=== PATIENT | female | born 1960 | race Caucasian/White ===

== ENCOUNTER 2016-11-07 05:47 | Observation (INO) | payer OTHER ==
[~2016-11-07] VITALS: Ht 177.8 cm; Wt 91.1 kg
--- NOTE | ~2016-11-07 | S ---
[facility] [place] [address] SURGICAL PATH RPT PROCEDURE Name: LINDY PEARL Room #: 200-I [facility] Michelle Lua#: [id number] Admission: 11/07/16 Date of : 56 Discharge: Report #: [id number] Path Case #: [id number] PATHOLOGY REPORT COLLECTION DATE: 11/08/2016 RECEIVED DATE: 11/08/2016 SUBMITTING PHYS: Dr. Serafin Hairston OTHER PHYS: Dr. Alia Polanco SPECIMEN(S) RECEIVED: A.Gallbladder * * * * * * * * * * * * FINAL DIAGNOSIS: A. Gallbladder, cholecystectomy: - Mild chronic cholecystitis. - Cholelithiasis. (IUV; 11/09/16) PATHOLOGIST: Char Munoz M.D. REPORT ELECTRONICALLY SIGNED BY: Char Munoz M.D. DATE/TIME: 11/09/2016 13:06 * * * * * * * * * * * * GROSS PATHOLOGY: Received in formalin labeled "Lindy Pearl and gallbladder," is a 9.3 x 3.8 x 1.2 cm, previously opened gallbladder with hemorrhagic and bile-stained serosal surfaces. The gallbladder was previously opened to reveal light green and granular mucosa and an average wall thickness of 0.2 cm. Calculi are present and no masses are noted grossly. Hollock Maker sections from the body and fundus are submitted along with the possible proximal margin in cassette A1. (TTL; 11/08/2016) CLINICAL HISTORY: Cholecystitis INITIAL CPT CODE(S): A; 58436 Professional services performed by [facility] at [facility] [address] , [place] [address] Technical services performed by [facility] at [address] [place] [address] [place] [address] SURGICAL PATH RPT PROCEDURE Name: DAELINDY Marge Room #: 200-I [facility] Michelle Lua#: [id number] Admission: 11/07/16 Date of : 56 Discharge: Report #: [id number] Path Case #: [id number] [place] [address]. BOB SAMSON) [facility] [address] [place] [address] PHONE: [phone] DIRECTOR: Kvng Don M.D. * * * END OF REPORT * * *
--- NOTE | ~2016-11-07 | O ---
[facility] [place] [address] OPERATIVE REPORT Name: ANGLEES PEARL Room #: 200-I [facility] Michelle Lua#: [id number] Admission: 11/07/16 Attend Phys: Alia Ward MD Discharge: 11/09/16 Date of : 56 Report #: [id number] THIS REPORT FOR: //name// CC: Alia Ward [facility] DATE OF SERVICE: 11/08/2016 PREOPERATIVE DIAGNOSES: 1. Symptomatic cholelithiasis, possible acute cholecystitis. 2. New onset atrial fibrillation. POSTOPERATIVE DIAGNOSES: 1. Symptomatic cholelithiasis. 2. New onset atrial fibrillation. PROCEDURE: Laparoscopic cholecystectomy with intraoperative cholangiogram. SURGEON: Serafin Hairston M.D. LICENSED PHYSICAL THERAPIST ASSISTANT: Leigh Flaherty N.P. ANESTHESIA: General endotracheal anesthesia and local anesthetic. ESTIMATED BLOOD LOSS: 5 mL. SPECIMEN: Gallbladder. COMPLICATIONS: None appreciated. INDICATIONS FOR PROCEDURE: This is a 56-year-old female patient who was transferred to [facility] with new onset atrial fibrillation with a rapid ventricular rate. She was initially seen at [facility] for abdominal pain, nausea and vomiting, which had been ongoing for the past couple of weeks. While at [facility], she underwent a CT of abdomen and pelvis, which revealed a distended gallbladder with cholelithiasis. Her transfer was initiated secondary to the atrial fibrillation. The patient has an exam consistent with acute cholecystitis. She presents now for laparoscopic cholecystectomy with cholangiogram. OPERATIVE FINDINGS: Upon entry to the abdominal cavity, the liver, stomach, small bowel and colon and the surrounding area appeared otherwise normal. The gallbladder showed no acute inflammatory changes. A critical view consisting of cystic artery, cystic duct and lower edge of the gallbladder forming a window through which the liver was visible was seen prior to clipping the cystic duct for cholangiogram. The cholangiogram showed free flow of contrast into the [facility] [address] [place] [address] OPERATIVE REPORT Name: ANGELES PEARL Room #: 200-I [facility] Michelle Lua#: [id number] Admission: 11/07/16 Attend Phys: Alia Ward MD Discharge: 11/09/16 Date of : 56 Report #: [id number] duodenal sweep. The biliary tree appeared normal. After removal of the gallbladder from the patient's abdominal cavity, it was opened on the backtable. Four moderate sized, nonpigmented gallstones were found within the gallbladder. The gallbladder did not appear to be acutely inflamed. Three clips remained on the cystic duct stump. No other significant intraabdominal pathology was identified. DESCRIPTION OF PROCEDURE IN DETAIL: After the benefits and risks of the procedure were explained to the patient which include but are not limited to risks of bleeding, infection, injury to the biliary tree, injury to adjacent organs, risk of DVT, pulmonary embolus, postoperative pain and postoperative expectations informed consent was obtained. The patient was identified in the preoperative holding area. The patient was then given IV antibiotics as documented in the chart to comply with the SCIP protocol. The patient was taken to the operating room and was placed in the supine position. The patient was given IV sedation and was intubated without incident. A time-out was performed to correctly identify the patient and procedure. SCDs were placed on the patient's bilateral lower extremities. The patient's abdomen was then prepped and draped in the standard sterile fashion with ChloraPrep. Local anesthetic was infiltrated into the skin and subcutaneous tissue. A periumbilical incision was made with a #15 blade scalpel. The 11-mm Visiport was then placed intraperitoneally with the 10-mm 0-degree angled laparoscope. After confirmation of placement within the peritoneal cavity, the scope was changed to a 10-mm 30 degree angled laparoscope and pneumoperitoneum was achieved with insufflation of carbon dioxide. The patient was placed in the reverse Trendelenburg position, rotated to the patient's left. A subxiphoid 5 mm and right subcostal 5 mm ports times 2 were placed under direct visualization after local anesthetic was infiltrated into the skin and subcutaneous tissue and appropriately sized incisions were made. Operative findings are as noted above. The dome of the gallbladder was retracted in a cephalad direction. The gallbladder peritoneum was scored medially and laterally after takedown of the adhesions to the gallbladder. Dissection was carried out around the cystic artery and cystic duct to identify each structure as entering directly into the gallbladder. The critical view as described above was seen. A Hemoclip was then placed on the cystic duct at its junction with the gallbladder. A ductotomy was made and the cholangiocatheter was passed into the cystic duct. A clip was placed, contrast was then injected and cholangiogram findings are as noted above. The cholangiocatheter was then removed and the cystic duct was triply clipped distal to the ductotomy. The duct was divided at the ductotomy site with the Harmonic scalpel. The cystic artery was then divided with the Harmonic scalpel as well. The gallbladder was then dissected off the liver bed with the Harmonic scalpel and after fully removing the gallbladder, it was placed in an Endopouch and then removed through the periumbilical port site. The abdominal cavity was then reentered. Other operative findings are as noted [address] [address] OPERATIVE REPORT Name: ANGELES PEARL Room #: 200-I [facility]#: [id number] Admission: 11/07/16 Attend Phys: Alia Ward MD Discharge: 11/09/16 Date of : 56 Report #: [id number]. The liver bed was made hemostatic with a combination of electrocautery and a combination of electrocautery and other hemostatic agent as documented in the chart. After ensuring final hemostasis and ensuring that the clips were secure, the periumbilical port site fascial opening was closed with a simple interrupted 0 PDS suture under direct visualization using the Erik Angeles laparoscopic fascial closure device. The ports were removed and the abdominal cavity was desufflated. The fascial suture was tied. Interrupted subcuticular 4-0 Monocryl sutures and Dermabond were used to close the skin. The patient tolerated the procedure well. The patient was awakened, extubated and taken to the recovery room in stable condition with no apparent intraoperative complications. <ELECTRONICALLY SIGNED> By: Serafin Hairston MD, FACS 11/12/16 0712 1201 1259 Serafin Hairston MD, FACS /nt
--- NOTE | ~2016-11-07 | HC ---
[facility] [place] [address] CONSULTATION Name: ANGELES PEARL Room #: 200-I ADM [facility] M.R.#: [id number] Admission: 11/07/16 Attend Phys: Alia Ward MD Discharge: Date of : 56 Report #: [id number] THIS REPORT FOR: //name// CC: Alia Ward [facility] DATE OF SERVICE: 11/07/2016 ATTENDING PHYSICIAN: Alia Wrad MD CONSULTING PHYSICIAN: Serafin Hairston MD REASON FOR CONSULTATION: Right upper quadrant abdominal pain. HISTORY OF PRESENT ILLNESS: This is a 56-year-old female patient who was transferred to [facility] secondary to new onset atrial fibrillation with a rapid ventricular rate. The patient was seen at [facility] for abdominal pain, nausea, and vomiting over the past couple of weeks. She denies fever. CT of the abdomen and pelvis showed a distending gallbladder with cholelithiasis. I have been asked to see the patient for further evaluation and treatment. PAST MEDICAL HISTORY: Significant for 1. Atrial fibrillation with rapid ventricular rate (currently in normal sinus rhythm/cardioverted). 2. Tobacco abuse. 3. Hypertension. 4. Arthritis. PAST SURGICAL HISTORY: Bilateral tubal ligation and HOME MEDICATIONS: Include Neurontin, Mobic, Zestril and Ultram. ALLERGIES: CODEINE. FAMILY HISTORY: Reviewed and noncontributory to this hospitalization. SOCIAL HISTORY: The patient denies any use of illicit drugs or alcohol. She smokes 1 pack of cigarettes daily. She lives at home with her spouse. REVIEW OF SYSTEMS: As per history of present illness. GENERAL: The patient denies unintentional weight loss. Denies fever or chills. HEENT: Denies changes in taste, vision, hearing, or smell. RESPIRATORY: Denies worsening shortness of breath or asthma. CARDIOVASCULAR: Denies chest pain or palpitations. GASTROINTESTINAL: As per history of present illness. Denies bright red blood [facility] [address] [place] [address] CONSULTATION Name: ANGELES PEARL Room #: 200-I [facility].#: [id number] Admission: 11/07/16 Attend Phys: Alia Ward MD Discharge: Date of : 56 Report #: [id number] per rectum. GENITOURINARY: Denies dysuria, urgency, increased urinary frequency or hematuria. MUSCULOSKELETAL: Denies myalgia, arthralgia or arthritis. NEUROLOGIC: Denies headaches, numbness or tingling. PSYCHIATRIC: Denies depression, anxiety or suicidal ideations. SKIN/INTEGUMENTARY: Denies new skin lesions, rashes, or moles. ENDOCRINE: Denies polydipsia, polyuria, heat or cold intolerance. HEMATOLOGIC: Denies easy bleeding, bruising or anemia. All other review of systems is negative. PHYSICAL EXAMINATION: VITAL SIGNS: Temperature 98.8, blood pressure 145/78, pulse 80 and respirations 18. GENERAL: This is a 56-year-old female patient who is accompanied by her . HEENT: Atraumatic, normocephalic with moist mucosal membranes. She smells of smoke. NECK: Supple, no appreciable lymphadenopathy. Trachea is midline. CHEST: Clear bilaterally. No crackles or wheezes. CARDIOVASCULAR: Regular rate and rhythm, S1, S2. ABDOMEN: Soft and tender to palpation, greatest in the right upper quadrant and upper epigastrium. She has a negative Truong's sign, no rebound or guarding. No palpable masses, no appreciable hernias. GENITOURINARY: Normal external female genitalia. EXTREMITIES: No clubbing, cyanosis or edema. NEUROLOGIC: Cranial nerves 2-12 grossly intact. PSYCHIATRIC: Normal mood and affect. SKIN/INTEGUMENTARY: No acute inflammatory changes, rashes or lesions are present. LABORATORY DATA: CBC shows a white blood cell count 4.9, hemoglobin 15.8, hematocrit 46.6 and platelets 148 with 56% segmented neutrophils. She had normal band levels. Comprehensive metabolic profile shows sodium 138, potassium 4.1, chloride 106, CO2 24, BUN 13, creatinine 0.9, glucose 130 with normal liver function tests and a normal lipase. Her D-dimer was elevated at 1.59. RADIOLOGIC STUDIES: CT findings from [facility] are as noted above. I also ordered an abdominal ultrasound which shows large gallstones within the gallbladder with no ultrasound findings for acute cholecystitis. She had a negative sonographic Truong sign. The gallbladder measured 5.2 mm in diameter, and expected size/not enlarged. IMPRESSION AND PLAN: This is a 56-year-old female patient with the above listed comorbidities who appears that symptomatic cholelithiasis and may be progressing towards acute cholecystitis. We discussed the pathophysiology and natural [address] [place] [address] CONSULTATION Name: DAEANGELES Marge Room #: 200-I [facility] Michelle Lua#: [id number] Admission: 11/07/16 Attend Phys: Alia Ward MD Discharge: Date of : 56 Report #: [id number] history of biliary disease as well as the treatment alternatives and surgical options. The patient would benefit from laparoscopic cholecystectomy. We discussed the risks, benefits, and expectations of the operation in detail. The patient expressed understanding and wishes to proceed. She will be taken to the operating room at the next earliest availability. I sincerely appreciate the opportunity to participate in the care of this patient and will leave further recommendations and orders in the electronic medical record as appropriate. Thank you very much. <ELECTRONICALLY SIGNED> By: Serafin Hairston MD, FACS 11/09/16 1146 2059 2218 Serafin Hairston MD, FACS /nt
--- NOTE | ~2016-11-07 | 2DMMODE ---
[facility] [address] [place] [address] 2 D/M-MODE ECHOCARDIOGRAM Name: ANGELES PEARL Room #: 200-I ADM [place] [facility].#: [id number] Admission: 11/07/16 Attend Phys: Alia Ward Discharge: Date of : 56 Date of Service: 11/07/16 1159 Report #: [id number] THIS REPORT FOR: //name// APPROVED REPORT EXAM: Comprehensive 2D, Doppler, and color-flow Echocardiogram Patient Location: Bedside/Room 200 Blood Pressure: 145/78 mmHg HR: 71 bpm Rhythm: NSR Other Information Study Quality: Adequate Indications Afib with RVR. Hx: HTN, Tobacco abuse 2D Dimensions RVDd: 38.22 mm LVEF(%): 67.65 (>50%) IVSd: 10.32 (7-11mm) LVOT Diam: 21.34 (18-24mm) LVDd: 42.02 mm PWd: 9.86 (7-11mm) Ascending Aorta: 32.33 mm LVDs: 26.36 (25-40mm) Aortic Root: 35.00 mm Lanier's LVEF: 67.65 % Volumes Left Atrial Volume (Systole) Single Plane 4CH: 20.37 mL Single Plane 2CH: 33.47 mL LA ESV Index: 14.00 mL/m2 Aortic Valve AoV Peak Jalen.: 1.47 m/s AO Peak Gr.: 8.70 mmHg LV Max P.21 mmHg LV Max: 1.14 m/s Mitral Valve MV PHT: 66.58 ms MV E Max Jalen.: 0.91 m/s E/A Ratio: 1.2 MV A Jalen.: 0.77 m/s MV Decel. Time: 229.59 ms TDI [facility] [address] [place] [address] 2 D/M-MODE [facility]ARDIO[facility] #: 200-I ADM IN .R.#: [id number] Admission: 11/07/16 Attend Phys: Alia Ward Discharge: Date of : 56 Date of Service: 11/07/16 1159 Report #: [id number] E/Lateral E': 9.00 E/Medial E': 16.00 Pulmonary Valve PV Peak Jalen.: 1.00 m/s PV Peak Gr.: 4.03 mmHg Tricuspid Valve TR Peak Jalen.: 1.84 m/s RAP Estimate: 5.00 mmHg TR Peak Gr.: 13.52 mmHg RVSP: 19.00 mmHg Left Ventricle The left ventricle is normal size. There is normal LV segmental wall motion. There is normal left ventricular wall thickness. Left ventricular systolic function is normal. LVEF is 60%. Grade II - pseudonormal filling dynamics. Right Ventricle The right ventricle is normal size. The right ventricular systolic function is normal. Atria The left atrium size is normal. The right atrium size is normal. Aortic Valve The aortic valve is normal in structure. No aortic regurgitation is present. There is no aortic valvular stenosis. Mitral Valve The mitral valve is normal in structure. Trace mitral regurgitation. Tricuspid Valve The tricuspid valve is normal in structure. There is trace tricuspid regurgitation. The right atrial pressure is estimated at 5 mmHg. Estimiated PAP of 19mmHg. Pulmonic Valve The pulmonary valve is normal in structure. Trace pulmonic regurgitation. Great Vessels The aortic root is normal in size. The ascending aorta is normal in size. IVC is normal in size and collapses >50% with inspiration. Pericardium [facility] [address] [place] [address] 2 D/M-MODE ECHOCARDIOGRAM Name: [facility] Room #: 200-I [facility] IN .R.#: [id number] Admission: 11/07/16 Attend Phys: Alia Ward Discharge: Date of : 56 Date of Service: 11/07/16 1159 Report #: [id number] There is no pericardial effusion. <Conclusion> The left ventricle is normal size. LVEF is 60%. The aortic valve is normal in structure. The mitral valve is normal in structure. There is trace tricuspid regurgitation. The right atrial pressure is estimated at 5 mmHg. Estimiated PAP of 19mmHg. Trace pulmonic regurgitation. <ELECTRONICALLY SIGNED> By: Jona Gonzalez MD 11/07/16 1159 1159 1159 Jona Gonzalez MD /INF
[2016-11-07 06:39] VITALS: BP 145/78
[2016-11-07] MEDS ORDERED: NEURONTIN600 MG PO ×2 (06:42→06:44)
[2016-11-07] MEDS ORDERED: MOBIC15 MG PO (06:46)
[2016-11-07] MEDS ORDERED: LISINOPRIL10 MG PO (06:47)
[2016-11-07] MEDS ORDERED: TRAMADOL 50 MG50 MG PO (06:48)
[2016-11-07 09:39] LABS: HEMATOCRIT 46.6 % (37.0-47.0); HEMOGLOBIN 15.8 gm/dL (12.0-15.0); MCV 88.1 fL (80.0-100.0); PLATELET COUNT 148 thou/uL (150-400); RBC 5.29 mil/uL (4.20-5.00); RDW 13.9 % (10.5-14.5); WBC 4.9 thou/uL (4.0-11.0)
[2016-11-07 09:41] LABS: MANUAL DIFF YES
[2016-11-07 09:55] LABS: ALBUMIN 3.4 g/dL (3.4-5.0); CALCIUM 8.5 mg/dL (8.5-10.1); CREATININE 0.9 mg/dL (0.6-1.3); POTASSIUM 4.1 mmol/L (3.5-5.1); TOTAL BILIRUBIN 0.4 mg/dL (<0.1-1.0); TOTAL PROTEIN 7.1 g/dL (6.4-8.2)
[2016-11-07 10:13] LABS: TOTAL CELL COUNT 100
[2016-11-07 19:15] VITALS: BP 125/66
[2016-11-08] VITALS (7 sets, daily range): BP systolic 85–111; BP diastolic 53–80
[2016-11-08 01:07] LABS: GLYCOHEMOGLOBIN (HGB A1C) 5.7 % (4.8-5.6)
[2016-11-08 02:22] LABS: URINE BILIRUBIN NEGATIVE (Negative); URINE BLOOD NEGATIVE (Negative); URINE COLOR YELLOW; URINE GLUCOSE-RANDOM* NEGATIVE (Negative); URINE KETONES TRACE (Negative); URINE LEUKOCYTES-REFLEX NEGATIVE (Negative); URINE PROTEIN (DIPSTICK) TRACE (Negative); URINE SPECIFIC GRAVITY 1.025 (1.003-1.035); URINE UROBILINOGEN 0.2 E.U./dl (0.2-1.0)
[2016-11-08 02:41] LABS: CASTS None Seen /LPF (None Seen); SQUAMOUS >10 Many /LPF (0-3)
[2016-11-08 02:42] LABS: CRYSTALS None Seen /LPF (None Seen); HYALINE CASTS 0-3 Few /LPF (None Seen); URINE RBC None Seen /HPF (0-2); URINE WBC-REFLEX 0-5 Rare /HPF (0-5)
[2016-11-09 00:13] VITALS: BP 123/64
[2016-11-09 03:19] LABS: ABSOLUTE NEUTROPHILS 3.2 thou/uL (1.4-8.2); BASOPHILS 0.4 % (0.0-2.0); EOSINOPHILS 0.1 % (0.0-3.0); LYMPHOCYTES 45.3 % (24.0-44.0); MCH 29.8 pg (26.0-34.0); MCHC 33.6 g/dL (28.0-37.0); MCV 88.6 fL (80.0-100.0); MONOCYTES 10.6 % (1.0-8.0); PLATELET COUNT 111 thou/uL (150-400); POLYS 43.6 % (36.0-66.0); RBC 4.29 mil/uL (4.20-5.00); RDW 14.1 % (10.5-14.5); WBC 7.4 thou/uL (4.0-11.0)
[2016-11-09 03:25] LABS: HEMOGLOBIN 12.8 gm/dL (12.0-15.0); MANUAL DIFF NO
[2016-11-09 03:46] VITALS: BP 151/64
[2016-11-09 03:48] LABS: CALCIUM 8.2 mg/dL (8.5-10.1); POTASSIUM 4.3 mmol/L (3.5-5.1)
[2016-11-09 08:00] VITALS: BP 137/73
[2016-11-09] MEDS ORDERED: TENORMIN50 MG PO ×2 (09:49→12:34)
[2016-11-09] MEDS ORDERED: XARELTO20 MG PO ×2 (09:49→12:34)
[2016-11-09 11:27] VITALS: BP 116/74
[2016-11-09 12:50] VITALS: BP 116/74
[2016-11-09] MEDS ORDERED: PERCOCET PO (12:55)
== END 2016-11-09 14:21 | disposition home or self-care (01) ==
LOC: 2N 05:47
PROVIDERS: Nurse Practitioner; Surgery
DX: I48.91 Unspecified atrial fibrillation (principal); K80.10 Calculus of gallbladder with chronic cholecystitis without obstruction; I10 Essential (primary) hypertension; M54.2 Cervicalgia; G89.29 Other chronic pain; G45.9 Transient cerebral ischemic attack, unspecified; R91.1 Solitary pulmonary nodule; R73.9 Hyperglycemia, unspecified; Z72.0 Tobacco use
CPT/HCPCS: 50010; 50101; 50249; 50411; 50555; 50558; 50962; 51975; 52265; 52266; 53307; 54022; 54118; 55245; 55317; 56462; 56525; 56526; 56638; 62110; 62900; 70005